=== PATIENT | female | born 1955 | race Caucasian/White ===

== ENCOUNTER 2017-07-10 03:31 | Inpatient (IN) ==
[2017-07-10] MEDS ORDERED: hydrALAZINE 20 MG/1 ML VIAL IV STA (03:49)
[2017-07-10] MEDS ORDERED: NITROGLYCERIN 2% OINT 1 INCH/GM PACK TOP STA (03:49)
[2017-07-10] MEDS ORDERED: MORPHINE 2 MG/1 ML SYRINGE IV STA (03:49)
[2017-07-10] MEDS ORDERED: methylPREDNISolone SOD SUC 125 MG/2 ML VIAL IV STA (03:49)
[2017-07-10] MEDS ORDERED: methylPREDNISolone SOD SUC 125 MG/2 ML VIAL ONE (03:55)
[2017-07-10] MEDS ORDERED: MORPHINE 2 MG/1 ML SYRINGE ONE (03:55)
[2017-07-10] MEDS ORDERED: NITROGLYCERIN 2% OINT 1 INCH/GM PACK TOP ONE (03:55)
[2017-07-10] MEDS ORDERED: hydrALAZINE 20 MG/1 ML VIAL ONE (03:55)
[2017-07-10] MEDS ORDERED: ALBUTEROL 2.5 MG/3 ML NEB RESP TX SCH (04:00)
[2017-07-10 04:41] LABS: Basophils # 0.1 10*3/uL (0.0-0.2); Basophils % 0.3 % (0.0-0.8); Eosinophils # 0.1 10*3/uL (0.0-0.87); Eosinophils % 0.3 % (0.00-10.9); Hematocrit 39.5 VOL% (35.7-47.0); Hemoglobin 13.6 GM/DL (12.0-16.0); Immature Granulocytes Absolute 0.16 #; Lymphocytes # 0.9 10*3/uL (1.4-4.0); Lymphocytes % 5.5 % (21.3-54.2); Mean Corpuscular HGB Conc 34.4 GM/DL (32-36); Mean Corpuscular Hemoglobin 31 PG (27-34); Mean Corpuscular Volume 89.4 FL (87-102); Mean Platelet Volume 9.7 FL (9.6-12.0); Monocytes # 0.3 10*3/uL (0.11-0.8); Neutrophils # 15.1 10*3/uL (1.4-7.4); Neutrophils % 90.9 % (38.7-73.9); Platelet Count 278 T/CUMM (130-400); Red Blood Count 4.42 MC/CUMM (3.8-5.5); Red Cell Distribution Width 12.4 % (9.3-17.3); White Blood Count 16.7 T/CUMM (4-12)
[2017-07-10] MEDS ORDERED: clonazePAM 0.5 MG TABLET PO STA (05:02)
[2017-07-10 05:05] LABS: Apearance,Urine CLEAR (Clear); Bacteria,Urine Occasional /HPF (Few); Bilirubin,Urine Negative (Negative); Blood, Urine Negative (Negative); Glucose,Urine (UA) Negative (Negative); Ketones,Urine Negative (Negative); Mucus,Urine Occasional /LPF (Occasional); Nitrite,Urine Negative (Negative); Protein,Urine Negative; RBC,Urine <1 /HPF (0-4); Squamous Epithelial Cell,Urine Occasional /HPF (0-10); Urine Color Straw (Yellow); Urine Specific Gravity 1.005 (1.001-1.035); Urine Urobilinogen < 2.0 EU/DL (0.2-1.0); WBC,Urine 2 /HPF (0-6)
[2017-07-10] MEDS ORDERED: BUMETANIDE 1 MG/4 ML VIAL IV STA (05:09)
[2017-07-10 05:14] LABS: Band Neutrophils 1 % (0-10); Giant Platelets Few; Hypochromasia 1+; Lymphocytes 6 % (20-55); Platelet Estimate Adequate; Segmented Neutrophils 92 % (50-85); Total Cells Counted 100
[2017-07-10 05:15] LABS: Alanine Aminotransferase 26 U/L (13-56); Albumin 4.2 G/DL (3.4-5.0); Alkaline Phosphatase 76 U/L (45-117); Aspartate Amino Transferase 19 U/L (0-37); Bilirubin,Total < 0.39 MG/DL (0.2-1.0); Blood Urea Nitrogen 10 MG/DL (7-18); Calcium 9.2 MG/DL (8.5-10.1); Glucose 135 MG/DL (74-106); Osmolality,Calculated 268.2 MOS/KG (273-304); Potassium 4.5 MMOL/L (3.5-5.1); Sodium 134 MMOL/L (136-145); Total Protein 7.8 G/DL (6.4-8.3); Troponin I Only 0.035 NG/ML (0.00-0.045)
[2017-07-10] MEDS ORDERED: BUMETANIDE 1 MG/4 ML VIAL ONE (05:25)
[2017-07-10] MEDS ORDERED: guaiFENesin/DM ER 600-30 MG TABLET PO PRN (05:53)
[2017-07-10] MEDS ORDERED: ONDANSETRON 4 MG/2 ML VIAL IV PRN (05:53)
[2017-07-10] MEDS ORDERED: MORPHINE 2 MG/1 ML SYRINGE IV PRN (05:53)
[2017-07-10] MEDS ORDERED: ALBUTEROL/IPRATROPIUM 3 ML NEB RESP TX PRN (05:53)
[2017-07-10] MEDS: PANTOPRAZOLE 40 MG VIAL IV SCH (06:44)
[2017-07-10] MEDS: ENOXAPARIN 40 MG/0.4 ML SYRINGE SUBCUT SCH (06:46)
[2017-07-10 07:12] LABS: Risk Ratio 4.26; VLDL CHOLESTEROL 51.6 MG/DL
[2017-07-10] MEDS: ALBUTEROL/IPRATROPIUM 3 ML NEB RESP TX SCH ×4 (07:55→19:36)
[2017-07-10] MEDS: DOCUSATE SODIUM 100 MG CAPSULE PO SCH ×2 (08:51→20:08)
[2017-07-10 09:52] LABS: ABG Base Excess 0.2 MMOL/L (-2.5-2.5); ABG HCO3 24.6 MMOL/L (20-26); ABG Oxygen Saturation 97.2 % (95-100); ABG PCO2 43.6 MM HG (35-48); ABG PH 7.377 (7.35-7.45); ABG PO2 91.3 MM HG (80-95); ABG TCO2 22.4 MMOL/L (23-27); Allen Test Positive
[2017-07-10] MEDS: ASPIRIN EC 81 MG TABLET PO SCH (10:24)
[2017-07-10] MEDS: methylPREDNISolone SOD SUC 40 MG/1 ML VIAL IV SCH ×2 (13:42→20:08)
[2017-07-10] MEDS: CEFEPIME 1,000 MG in SYRINGE 1 EACH IV SCH (13:48)
[2017-07-10] MEDS: PRIMIDONE 50 MG TABLET PO SCH (14:04)
[2017-07-10] MEDS: BACLOFEN 10 MG TABLET PO SCH ×2 (14:04→20:08)
[2017-07-10] MEDS: LEVOFLOXACIN INJ 750 MG in PREMIX 1 EACH IV SCH (16:14)
[2017-07-10] MEDS ORDERED: amLODIPine 2.5 MG TABLET PO ONE (18:21)
[2017-07-10] MEDS: diphenhydrAMINE CAP 25 MG CAPSULE PO PRN (18:22)
[2017-07-10] MEDS: DORNASE ALFA 2.5 MG/2.5 ML VIAL RESP TX SCH (19:36)
[2017-07-10] MEDS: ATORVASTATIN 40 MG TABLET PO SCH (20:10)
[2017-07-10] MEDS: MINERAL OIL/PETROLATUM OPH OINT 3.5 GM TUBE RIGHT EYE SCH (20:10)
[2017-07-11] MEDS: CEFEPIME 1,000 MG in SYRINGE 1 EACH IV SCH ×2 (00:06→12:52)
[2017-07-11] MEDS: diphenhydrAMINE CAP 25 MG CAPSULE PO PRN ×2 (00:14→08:59)
[2017-07-11] MEDS: ALBUTEROL/IPRATROPIUM 3 ML NEB RESP TX SCH ×8 (00:23→23:20)
[2017-07-11 03:46] LABS: ABG Base Excess 4.5 MMOL/L (-2.5-2.5); ABG HCO3 28.4 MMOL/L (20-26); ABG Oxygen Saturation 96.8 % (95-100); ABG PCO2 48.6 MM HG (35-48); ABG PH 7.402 (7.35-7.45); ABG PO2 85.8 MM HG (80-95); ABG TCO2 26.5 MMOL/L (23-27); Allen Test Positive
[2017-07-11] MEDS: methylPREDNISolone SOD SUC 40 MG/1 ML VIAL IV SCH ×3 (05:08→21:08)
[2017-07-11] MEDS: ENOXAPARIN 40 MG/0.4 ML SYRINGE SUBCUT SCH (05:08)
[2017-07-11] MEDS: PANTOPRAZOLE 40 MG VIAL IV SCH (05:08)
[2017-07-11 05:41] LABS: Basophils % 0.1 % (0.0-0.8); Hemoglobin 13.1 GM/DL (12.0-16.0); Immature Granulocytes % 0.9 %; Immature Granulocytes Absolute 0.18 #; Lymphocytes # 0.9 10*3/uL (1.4-4.0); Lymphocytes % 4.4 % (21.3-54.2); Mean Corpuscular HGB Conc 34.5 GM/DL (32-36); Mean Corpuscular Hemoglobin 31 PG (27-34); Mean Corpuscular Volume 89.6 FL (87-102); Mean Platelet Volume 10.1 FL (9.6-12.0); Monocytes # 1.2 10*3/uL (0.11-0.8); Monocytes % 5.6 % (1.7-12.7); Neutrophils # 18.8 10*3/uL (1.4-7.4); Platelet Count 309 T/CUMM (130-400); Red Blood Count 4.24 MC/CUMM (3.8-5.5); Red Cell Distribution Width 12.5 % (9.3-17.3); White Blood Count 21.1 T/CUMM (4-12)
[2017-07-11 06:05] LABS: Calcium 9.7 MG/DL (8.5-10.1); Magnesium 2.2 MG/DL (1.8-2.4); Osmolality,Calculated 271.4 MOS/KG (273-304); Potassium 4.4 MMOL/L (3.5-5.1)
[2017-07-11 06:15] LABS: Band Neutrophils 6 % (0-10); Lymphocytes 6 % (20-55); Segmented Neutrophils 83 % (50-85); Total Cells Counted 100
[2017-07-11 06:16] LABS: Hypochromasia 1+; Platelet Estimate Adequate
[2017-07-11] MEDS: DORNASE ALFA 2.5 MG/2.5 ML VIAL RESP TX SCH ×2 (07:37→19:27)
[2017-07-11] MEDS: DOCUSATE SODIUM 100 MG CAPSULE PO SCH ×2 (08:18→21:08)
[2017-07-11] MEDS: BACLOFEN 10 MG TABLET PO SCH ×3 (08:19→21:08)
[2017-07-11] MEDS: FLUoxetine 20 MG CAPSULE PO SCH (08:19)
[2017-07-11] MEDS: PRIMIDONE 50 MG TABLET PO SCH (08:20)
[2017-07-11] MEDS: ASPIRIN EC 81 MG TABLET PO SCH (08:20)
[2017-07-11] MEDS: MINERAL OIL/PETROLATUM OPH OINT 3.5 GM TUBE RIGHT EYE SCH ×2 (08:22→15:52)
[2017-07-11] MEDS ORDERED: amLODIPine 2.5 MG TABLET PO SCH (09:00)
[2017-07-11] MEDS: DILTIAZEM 30 MG TABLET PO SCH ×3 (12:51→21:08)
[2017-07-11] MEDS: LEVOFLOXACIN INJ 750 MG in PREMIX 1 EACH IV SCH (15:52)
[2017-07-11] MEDS: ATORVASTATIN 40 MG TABLET PO SCH (21:21)
[2017-07-12] MEDS: MINERAL OIL/PETROLATUM OPH OINT 3.5 GM TUBE RIGHT EYE SCH ×4 (00:39→20:04)
[2017-07-12] MEDS: CEFEPIME 1,000 MG in SYRINGE 1 EACH IV SCH (00:39)
[2017-07-12] MEDS: ALBUTEROL/IPRATROPIUM 3 ML NEB RESP TX SCH ×6 (03:29→23:36)
[2017-07-12] MEDS: PANTOPRAZOLE 40 MG VIAL IV SCH (06:50)
[2017-07-12] MEDS: methylPREDNISolone SOD SUC 40 MG/1 ML VIAL IV SCH ×3 (06:50→19:59)
[2017-07-12] MEDS: ENOXAPARIN 40 MG/0.4 ML SYRINGE SUBCUT SCH (06:50)
[2017-07-12 07:07] LABS: Basophils % 0.2 % (0.0-0.8); Eosinophils % 0.1 % (0.00-10.9); Hematocrit 39.3 VOL% (35.7-47.0); Immature Granulocytes % 1.2 %; Immature Granulocytes Absolute 0.28 #; Lymphocytes # 1.2 10*3/uL (1.4-4.0); Lymphocytes % 4.9 % (21.3-54.2); Mean Corpuscular HGB Conc 33.1 GM/DL (32-36); Mean Corpuscular Hemoglobin 31 PG (27-34); Mean Corpuscular Volume 92.3 FL (87-102); Mean Platelet Volume 10.5 FL (9.6-12.0); Monocytes # 1.4 10*3/uL (0.11-0.8); Monocytes % 5.7 % (1.7-12.7); Neutrophils # 20.8 10*3/uL (1.4-7.4); Neutrophils % 87.9 % (38.7-73.9); Platelet Count 296 T/CUMM (130-400); Red Blood Count 4.26 MC/CUMM (3.8-5.5); Red Cell Distribution Width 12.5 % (9.3-17.3); White Blood Count 23.7 T/CUMM (4-12)
[2017-07-12] MEDS: DORNASE ALFA 2.5 MG/2.5 ML VIAL RESP TX SCH ×2 (07:35→19:41)
[2017-07-12 07:42] LABS: Calcium 9.1 MG/DL (8.5-10.1); Magnesium 2.4 MG/DL (1.8-2.4); Osmolality,Calculated 271.2 MOS/KG (273-304)
[2017-07-12 07:50] LABS: Band Neutrophils 2 % (0-10); Hypochromasia 1+; Lymphocytes 4 % (20-55); Microcytosis Slight; Segmented Neutrophils 87 % (50-85); Total Cells Counted 100
[2017-07-12] MEDS: BACLOFEN 10 MG TABLET PO SCH ×3 (09:15→20:02)
[2017-07-12] MEDS: ASPIRIN EC 81 MG TABLET PO SCH (09:15)
[2017-07-12] MEDS: FLUoxetine 20 MG CAPSULE PO SCH (09:15)
[2017-07-12] MEDS: PRIMIDONE 50 MG TABLET PO SCH (09:15)
[2017-07-12] MEDS: DILTIAZEM 30 MG TABLET PO SCH ×4 (09:15→20:02)
[2017-07-12] MEDS: DOCUSATE SODIUM 100 MG CAPSULE PO SCH ×2 (09:16→20:02)
[2017-07-12] MEDS: ERTAPENEM 1,000 MG in SODIUM CHLORIDE 0.9% 50 ML IV SCH (12:59)
[2017-07-12] MEDS: diphenhydrAMINE CAP 25 MG CAPSULE PO PRN (13:16)
[2017-07-12] MEDS: ATORVASTATIN 40 MG TABLET PO SCH (20:02)
[2017-07-13] MEDS: ALBUTEROL/IPRATROPIUM 3 ML NEB RESP TX SCH ×5 (03:29→19:40)
[2017-07-13] MEDS: PANTOPRAZOLE 40 MG VIAL IV SCH (05:27)
[2017-07-13] MEDS: methylPREDNISolone SOD SUC 40 MG/1 ML VIAL IV SCH ×3 (05:29→21:11)
[2017-07-13] MEDS: ENOXAPARIN 40 MG/0.4 ML SYRINGE SUBCUT SCH (05:32)
[2017-07-13 06:19] LABS: Basophils % 0.2 % (0.0-0.8); Eosinophils % 0.1 % (0.00-10.9); Hematocrit 37.3 VOL% (35.7-47.0); Hemoglobin 12.6 GM/DL (12.0-16.0); Immature Granulocytes % 3.6 %; Immature Granulocytes Absolute 0.67 #; Lymphocytes % 5.5 % (21.3-54.2); Mean Corpuscular HGB Conc 33.8 GM/DL (32-36); Mean Corpuscular Hemoglobin 31 PG (27-34); Mean Corpuscular Volume 90.5 FL (87-102); Mean Platelet Volume 10.4 FL (9.6-12.0); Monocytes % 5.6 % (1.7-12.7); Neutrophils # 15.7 10*3/uL (1.4-7.4); Platelet Count 297 T/CUMM (130-400); Red Blood Count 4.12 MC/CUMM (3.8-5.5); Red Cell Distribution Width 12.4 % (9.3-17.3); White Blood Count 18.4 T/CUMM (4-12)
[2017-07-13 06:45] LABS: Band Neutrophils 1 % (0-10); Giant Platelets Few; Hypochromasia 1+; Lymphocytes 7 % (20-55); Microcytosis Slight; Platelet Estimate Adequate; Segmented Neutrophils 89 % (50-85); Total Cells Counted 100
[2017-07-13 06:49] LABS: Calcium 8.7 MG/DL (8.5-10.1); Osmolality,Calculated 277.2 MOS/KG (273-304)
[2017-07-13] MEDS: DORNASE ALFA 2.5 MG/2.5 ML VIAL RESP TX SCH ×2 (07:02→19:41)
[2017-07-13] MEDS ORDERED: GLUCAGON 1 MG VIAL IM PRN (07:47)
[2017-07-13] MEDS ORDERED: DEXTROSE 50% 25 GM/50 ML VIAL IV PRN (07:47)
[2017-07-13] MEDS: BACLOFEN 10 MG TABLET PO SCH ×3 (09:31→20:49)
[2017-07-13] MEDS: ASPIRIN EC 81 MG TABLET PO SCH (09:31)
[2017-07-13] MEDS: DOCUSATE SODIUM 100 MG CAPSULE PO SCH ×2 (09:32→20:49)
[2017-07-13] MEDS: PRIMIDONE 50 MG TABLET PO SCH (09:32)
[2017-07-13] MEDS: DILTIAZEM CD 180 MG CAPSULE PO SCH (09:33)
[2017-07-13] MEDS: MINERAL OIL/PETROLATUM OPH OINT 3.5 GM TUBE RIGHT EYE SCH ×3 (09:33→20:51)
[2017-07-13] MEDS: PANTOPRAZOLE 40 MG TABLET PO SCH (09:33)
[2017-07-13] MEDS: FLUoxetine 20 MG CAPSULE PO SCH (09:33)
[2017-07-13] MEDS: INSULIN REGULAR 100 UNIT/ML SUBCUT SCH ×3 (12:45→20:49)
[2017-07-13] MEDS: ERTAPENEM 1,000 MG in SODIUM CHLORIDE 0.9% 50 ML IV SCH (12:46)
[2017-07-13] MEDS: diphenhydrAMINE CAP 25 MG CAPSULE PO PRN (20:49)
[2017-07-13] MEDS: ATORVASTATIN 40 MG TABLET PO SCH (20:49)
[2017-07-14] MEDS: ALBUTEROL/IPRATROPIUM 3 ML NEB RESP TX SCH ×7 (00:04→23:52)
[2017-07-14] MEDS ORDERED: hydrALAZINE 20 MG/1 ML VIAL IV PRN (04:15)
[2017-07-14] MEDS: methylPREDNISolone SOD SUC 40 MG/1 ML VIAL IV SCH ×2 (05:24→17:16)
[2017-07-14] MEDS: ENOXAPARIN 40 MG/0.4 ML SYRINGE SUBCUT SCH (05:25)
[2017-07-14] MEDS: DILTIAZEM CD 180 MG CAPSULE PO SCH (08:47)
[2017-07-14] MEDS: METOPROLOL TARTRATE 25 MG TABLET PO SCH ×2 (08:48→20:28)
[2017-07-14] MEDS: ASPIRIN EC 81 MG TABLET PO SCH (08:48)
[2017-07-14] MEDS: CLOPIDOGREL 75 MG TABLET PO SCH (08:48)
[2017-07-14] MEDS: ISOSORBIDE MONONITRATE 30 MG TABLET PO SCH (08:48)
[2017-07-14] MEDS: BACLOFEN 10 MG TABLET PO SCH ×3 (08:48→20:28)
[2017-07-14] MEDS: PRIMIDONE 50 MG TABLET PO SCH (08:48)
[2017-07-14] MEDS: DOCUSATE SODIUM 100 MG CAPSULE PO SCH ×2 (08:48→20:28)
[2017-07-14] MEDS: LOSARTAN 50 MG TABLET PO SCH (08:48)
[2017-07-14] MEDS: FLUoxetine 20 MG CAPSULE PO SCH (08:48)
[2017-07-14] MEDS: PANTOPRAZOLE 40 MG TABLET PO SCH (08:49)
[2017-07-14] MEDS: INSULIN REGULAR 100 UNIT/ML SUBCUT SCH ×4 (09:33→20:29)
[2017-07-14] MEDS: MINERAL OIL/PETROLATUM OPH OINT 3.5 GM TUBE RIGHT EYE SCH ×3 (09:34→20:30)
[2017-07-14] MEDS: ERTAPENEM 1,000 MG in SODIUM CHLORIDE 0.9% 50 ML IV SCH (12:54)
[2017-07-14] MEDS: ACETAMINOPHEN 325 MG TABLET PO PRN (18:12)
[2017-07-14] MEDS: diphenhydrAMINE CAP 25 MG CAPSULE PO PRN (20:28)
[2017-07-14] MEDS: ATORVASTATIN 40 MG TABLET PO SCH (20:28)
[2017-07-15] MEDS: ALBUTEROL/IPRATROPIUM 3 ML NEB RESP TX SCH ×3 (03:52→16:12)
[2017-07-15] MEDS: methylPREDNISolone SOD SUC 40 MG/1 ML VIAL IV SCH (06:12)
[2017-07-15] MEDS: ENOXAPARIN 40 MG/0.4 ML SYRINGE SUBCUT SCH (06:12)
[2017-07-15 06:31] LABS: Calcium 8.6 MG/DL (8.5-10.1); Osmolality,Calculated 272.1 MOS/KG (273-304); Potassium 4.2 MMOL/L (3.5-5.1)
[2017-07-15] MEDS: DOCUSATE SODIUM 100 MG CAPSULE PO SCH (08:35)
[2017-07-15] MEDS: INSULIN REGULAR 100 UNIT/ML SUBCUT SCH ×2 (09:11→11:39)
[2017-07-15] MEDS: ISOSORBIDE MONONITRATE 30 MG TABLET PO SCH (09:12)
[2017-07-15] MEDS: FLUoxetine 20 MG CAPSULE PO SCH (09:12)
[2017-07-15] MEDS: ASPIRIN EC 81 MG TABLET PO SCH (09:12)
[2017-07-15] MEDS: CLOPIDOGREL 75 MG TABLET PO SCH (09:12)
[2017-07-15] MEDS: PRIMIDONE 50 MG TABLET PO SCH (09:12)
[2017-07-15] MEDS: METOPROLOL TARTRATE 25 MG TABLET PO SCH (09:12)
[2017-07-15] MEDS: DILTIAZEM CD 180 MG CAPSULE PO SCH (09:12)
[2017-07-15] MEDS: PANTOPRAZOLE 40 MG TABLET PO SCH (09:12)
[2017-07-15] MEDS: BACLOFEN 10 MG TABLET PO SCH ×2 (09:12→16:39)
[2017-07-15] MEDS: LOSARTAN 50 MG TABLET PO SCH (09:12)
[2017-07-15] MEDS: ACETAMINOPHEN 325 MG TABLET PO PRN (09:13)
[2017-07-15] MEDS: MINERAL OIL/PETROLATUM OPH OINT 3.5 GM TUBE RIGHT EYE SCH ×2 (09:13→16:39)
[2017-07-15] MEDS: diphenhydrAMINE CAP 25 MG CAPSULE PO PRN (09:17)
[2017-07-15 11:24] VITALS: BP 123/74
[2017-07-15] MEDS: ERTAPENEM 1,000 MG in SODIUM CHLORIDE 0.9% 50 ML IV SCH (11:39)
== END 2017-07-15 17:13 | disposition home or self-care (01) | DRG 178 ==
LOC: N.ED 03:31 → SUATTDRO 04:41 → N.EDINP 05:06 → N.ICU 05:14 → N.5E 07-11 13:52
PROVIDERS: ADMIT Internal Medicine; ATTEND Internal Medicine

== ENCOUNTER 2018-11-16 12:33 | Observation (INO) ==
[2018-11-16] MEDS ORDERED: ALBUTEROL 2.5 MG/3 ML NEB RESP TX STA (15:42)
[2018-11-16] MEDS ORDERED: ONDANSETRON 4 MG/2 ML VIAL IV PRN (16:07)
[2018-11-16] MEDS ORDERED: ALUMINUM/MAGNES/SIMETH MAX STR 30 ML UDCUP PO PRN (16:10)
[2018-11-16] MEDS ORDERED: MAGNESIUM HYDROXIDE SUSP 30 ML UDCUP PO PRN (16:10)
[2018-11-16] MEDS ORDERED: BACLOFEN 10 MG TABLET PO PRN (16:11)
[2018-11-16] MEDS: cefTRIAXone 1,000 MG in SYRINGE 1 EACH IV SCH (17:02)
[2018-11-16] MEDS: methylPREDNISolone SOD SUC 125 MG/2 ML VIAL IV SCH (17:03)
[2018-11-16] MEDS: ALBUTEROL/IPRATROPIUM 3 ML NEB RESP TX SCH (19:25)
[2018-11-16] MEDS: diphenhydrAMINE CAP 25 MG CAPSULE PO PRN (20:10)
[2018-11-16] MEDS: METOPROLOL TARTRATE 25 MG TABLET PO SCH (20:11)
[2018-11-16] MEDS: busPIRone 5 MG TABLET PO SCH (20:11)
[2018-11-16] MEDS: MONTELUKAST 10 MG TABLET PO SCH (20:11)
[2018-11-16] MEDS: ATORVASTATIN 80 MG TABLET PO SCH (20:11)
[2018-11-16] MEDS: traMADol 50 MG TABLET PO PRN (20:11)
[2018-11-16] MEDS: THEOPHYLLINE ER 300 MG TABLET PO SCH (20:11)
[2018-11-16] MEDS: ACETAMINOPHEN 325 MG TABLET PO PRN (23:24)
[2018-11-17 02:52] LABS: Basophils % 0.2 % (0.0-0.8); Hematocrit 39.9 VOL% (35.7-47.0); Hemoglobin 12.5 GM/DL (12.0-16.0); Immature Granulocytes % 0.5 %; Immature Granulocytes Absolute 0.05 #; Lymphocytes # 1.2 10*3/uL (1.4-4.0); Lymphocytes % 11.9 % (21.3-54.2); Mean Corpuscular HGB Conc 31.3 GM/DL (32-36); Mean Corpuscular Hemoglobin 29 PG (27-34); Mean Corpuscular Volume 92.4 FL (87-102); Mean Platelet Volume 9.9 FL (9.6-12.0); Monocytes # 0.3 10*3/uL (0.11-0.8); Monocytes % 3.2 % (1.7-12.7); Neutrophils # 8.5 10*3/uL (1.4-7.4); Neutrophils % 84.2 % (38.7-73.9); Platelet Count 313 T/CUMM (130-400); Red Blood Count 4.32 MC/CUMM (3.8-5.5); Red Cell Distribution Width 12.6 % (9.3-17.3); White Blood Count 10.1 T/CUMM (4-12)
[2018-11-17 03:08] LABS: Calcium 9.5 MG/DL (8.5-10.1); Osmolality,Calculated 279.5 MOS/KG (273-304); Potassium 5.1 MMOL/L (3.5-5.1)
[2018-11-17] MEDS: methylPREDNISolone SOD SUC 125 MG/2 ML VIAL IV SCH ×2 (04:08→17:43)
[2018-11-17] MEDS: ALBUTEROL 2.5 MG/3 ML NEB RESP TX SCH ×6 (04:19→22:55)
[2018-11-17] MEDS: ALBUTEROL/IPRATROPIUM 3 ML NEB RESP TX SCH ×4 (07:46→20:05)
[2018-11-17] MEDS ORDERED: FLUoxetine 20 MG CAPSULE PO SCH (09:00)
[2018-11-17] MEDS: CETIRIZINE 10 MG TABLET PO SCH (09:00)
[2018-11-17] MEDS: busPIRone 5 MG TABLET PO SCH ×3 (09:00→20:40)
[2018-11-17] MEDS: THEOPHYLLINE ER 300 MG TABLET PO SCH ×2 (09:00→20:41)
[2018-11-17] MEDS: ISOSORBIDE MONONITRATE 30 MG TABLET PO SCH (09:00)
[2018-11-17] MEDS: LOSARTAN 50 MG TABLET PO SCH (09:01)
[2018-11-17] MEDS: PRIMIDONE 50 MG TABLET PO SCH (09:01)
[2018-11-17] MEDS: ASPIRIN EC 81 MG TABLET PO SCH (09:01)
[2018-11-17] MEDS: PANTOPRAZOLE 40 MG TABLET PO SCH (09:02)
[2018-11-17] MEDS: METOPROLOL TARTRATE 25 MG TABLET PO SCH ×2 (09:02→20:40)
[2018-11-17] MEDS: traMADol 50 MG TABLET PO PRN ×2 (09:13→20:40)
[2018-11-17] MEDS: diphenhydrAMINE CAP 25 MG CAPSULE PO PRN ×2 (09:14→17:43)
[2018-11-17] MEDS: CLOPIDOGREL 75 MG TABLET PO SCH (09:18)
[2018-11-17] MEDS: ACETAMINOPHEN 325 MG TABLET PO PRN (10:48)
[2018-11-17] MEDS: cefTRIAXone 1,000 MG in SYRINGE 1 EACH IV SCH (17:44)
[2018-11-17] MEDS: ATORVASTATIN 80 MG TABLET PO SCH (20:40)
[2018-11-17] MEDS: MONTELUKAST 10 MG TABLET PO SCH (20:41)
[2018-11-18] MEDS: ALBUTEROL 2.5 MG/3 ML NEB RESP TX SCH ×3 (02:46→23:46)
[2018-11-18] MEDS: methylPREDNISolone SOD SUC 125 MG/2 ML VIAL IV SCH ×2 (05:19→19:05)
[2018-11-18] MEDS ORDERED: PROMETHAZINE 25 MG/1 ML VIAL IM ONE (07:00)
[2018-11-18] MEDS ORDERED: MEPERIDINE 50 MG/1 ML VIAL IM ONE (07:00)
[2018-11-18] MEDS ORDERED: LIDOCAINE 2% 20 ML VIAL RESP TX ONE (07:30)
[2018-11-18] MEDS ORDERED: LIDOCAINE 2% VISCOUS 100 ML BOTTLE SWISH/SPIT ONE (07:30)
[2018-11-18] MEDS ORDERED: LIDOCAINE 1% 20 ML VIAL MISC INJ ONE (07:30)
[2018-11-18] MEDS ORDERED: hydrALAZINE 20 MG/1 ML VIAL IV ONE (07:30)
[2018-11-18] MEDS: ALBUTEROL/IPRATROPIUM 3 ML NEB RESP TX SCH ×4 (07:40→19:13)
[2018-11-18] MEDS ORDERED: MIDAZOLAM 2 MG/2 ML VIAL IV ONE (10:09)
[2018-11-18] MEDS ORDERED: MIDAZOLAM 2 MG/2 ML VIAL ONE (10:26)
[2018-11-18] MEDS: METOPROLOL TARTRATE 25 MG TABLET PO SCH ×2 (13:00→21:38)
[2018-11-18] MEDS: PARoxetine 20 MG TABLET PO SCH (13:01)
[2018-11-18] MEDS: PRIMIDONE 50 MG TABLET PO SCH (13:01)
[2018-11-18] MEDS: THEOPHYLLINE ER 300 MG TABLET PO SCH ×2 (13:01→21:38)
[2018-11-18] MEDS: CETIRIZINE 10 MG TABLET PO SCH (13:01)
[2018-11-18] MEDS: busPIRone 5 MG TABLET PO SCH ×3 (13:02→21:46)
[2018-11-18] MEDS: ISOSORBIDE MONONITRATE 30 MG TABLET PO SCH (13:02)
[2018-11-18] MEDS: PANTOPRAZOLE 40 MG TABLET PO SCH (13:02)
[2018-11-18] MEDS: ASPIRIN EC 81 MG TABLET PO SCH (13:02)
[2018-11-18] MEDS: CLOPIDOGREL 75 MG TABLET PO SCH (13:03)
[2018-11-18] MEDS: LOSARTAN 50 MG TABLET PO SCH (13:08)
[2018-11-18] MEDS: cefTRIAXone 1,000 MG in SYRINGE 1 EACH IV SCH (17:50)
[2018-11-18] MEDS ORDERED: ALBUTEROL/IPRATROPIUM 3 ML NEB RESP TX PRN (19:00)
[2018-11-18] MEDS: traMADol 50 MG TABLET PO PRN (19:14)
[2018-11-18] MEDS: diphenhydrAMINE CAP 25 MG CAPSULE PO PRN (21:39)
[2018-11-18] MEDS: ACETAMINOPHEN 325 MG TABLET PO PRN (21:39)
[2018-11-18] MEDS: MONTELUKAST 10 MG TABLET PO SCH (21:39)
[2018-11-18] MEDS: ATORVASTATIN 80 MG TABLET PO SCH (21:39)
[2018-11-19] MEDS: ALBUTEROL/IPRATROPIUM 3 ML NEB RESP TX SCH ×3 (00:27→12:14)
[2018-11-19 05:06] LABS: Basophils % 0.2 % (0.0-0.8); Hematocrit 38.7 VOL% (35.7-47.0); Hemoglobin 12.1 GM/DL (12.0-16.0); Immature Granulocytes % 0.9 %; Immature Granulocytes Absolute 0.14 #; Lymphocytes # 1.5 10*3/uL (1.4-4.0); Lymphocytes % 9.3 % (21.3-54.2); Mean Corpuscular HGB Conc 31.3 GM/DL (32-36); Mean Corpuscular Hemoglobin 29 PG (27-34); Mean Corpuscular Volume 93.7 FL (87-102); Mean Platelet Volume 10.2 FL (9.6-12.0); Monocytes % 6.4 % (1.7-12.7); Neutrophils % 83.2 % (38.7-73.9); Platelet Count 331 T/CUMM (130-400); Red Blood Count 4.13 MC/CUMM (3.8-5.5); White Blood Count 15.6 T/CUMM (4-12)
[2018-11-19] MEDS: methylPREDNISolone SOD SUC 125 MG/2 ML VIAL IV SCH (06:01)
[2018-11-19] MEDS: LOSARTAN 50 MG TABLET PO SCH (08:49)
[2018-11-19] MEDS: CETIRIZINE 10 MG TABLET PO SCH (08:49)
[2018-11-19] MEDS: CLOPIDOGREL 75 MG TABLET PO SCH (08:49)
[2018-11-19] MEDS: PANTOPRAZOLE 40 MG TABLET PO SCH (08:49)
[2018-11-19] MEDS: METOPROLOL TARTRATE 25 MG TABLET PO SCH (08:49)
[2018-11-19] MEDS: THEOPHYLLINE ER 300 MG TABLET PO SCH (08:49)
[2018-11-19] MEDS: ASPIRIN EC 81 MG TABLET PO SCH (08:50)
[2018-11-19] MEDS: PRIMIDONE 50 MG TABLET PO SCH (08:50)
[2018-11-19] MEDS: PARoxetine 20 MG TABLET PO SCH (08:51)
[2018-11-19] MEDS: ISOSORBIDE MONONITRATE 30 MG TABLET PO SCH (08:51)
[2018-11-19] MEDS: busPIRone 5 MG TABLET PO SCH (08:51)
[2018-11-19] MEDS: traMADol 50 MG TABLET PO PRN (09:22)
[2018-11-19 12:40] VITALS: BP 119/70
== END 2018-11-19 13:45 | disposition home or self-care (01) ==
LOC: N.TELEN 14:05 → INTOOBSV 14:05 → SUATTDRO 14:05 → N.TELEN 14:23
PROVIDERS: ADMIT Internal Medicine; ATTEND Internal Medicine